=== PATIENT | female | born 1945 | race Two or more races ===

== ENCOUNTER 2021-02-12 15:01 | Emergency (ER) | payer OTHER ==
[~2021-02-12] VITALS: Ht 160 cm; Wt 73.0 kg
[2021-02-12] MEDS ORDERED: ARMOUR THYROID60 M1 PO (15:22)
== END 2021-02-12 19:01 | disposition home or self-care (01) ==
LOC: ER 15:01
DX: M75.51 Bursitis of right shoulder (principal)

== ENCOUNTER 2023-01-31 12:31 | Outpatient (CLI) | payer OTHER ==
[~2023-01-31 12:31] MED LIST: ARMOUR THYROID60 M1 PO
== END 2023-01-31 12:37 | disposition home or self-care (01) ==
LOC: RAD 12:31
PROVIDERS: ATTEND Physical Medicine & Rehabilitation
DX: M25.512 Pain in left shoulder (principal)

== ENCOUNTER 2023-02-03 13:29 | Outpatient (CLI) | payer OTHER | END 2023-02-03 13:42 | disposition home or self-care (01) | LOC: SONOGRAMA 13:29 | DX: N20.0 Calculus of kidney (principal); R10.9 Unspecified abdominal pain; E34.9 Endocrine disorder, unspecified ==